=== PATIENT | female | born 1985 | race Caucasian/White ===

== ENCOUNTER → 2021-05-12 10:32 | Outpatient (BNVA) | payer OTHER, SELFPAY | PROVIDERS: PCP Nurse Practitioner Family; Visit Provider Surgery Vascular Surgery ==

== ENCOUNTER 2021-05-26 13:07 | Outpatient (REF) | payer OTHER, SELFPAY ==
--- NOTE | ~2021-05-26 | US_ITS ---
EXAMINATION: US LOWER EXTREMITY VENOUS ULTRASOUND (REFLUX EXAM), BILATERAL CLINICAL INDICATION: Bilateral lower extremity varicose veins. COMPARISON: None. TECHNIQUE: Color-flow triplex imaging and compression Doppler was performed to evaluate both the deep and the superficial systems bilaterally. To evaluate the superficial system, the examination was performed in the upright position. Color-flow Doppler ultrasound and compression ultrasound were utilized. In addition, maneuvers were utilized to demonstrate reflux. FINDINGS: 1. DEEP VENOUS ULTRASOUND OF THE RIGHT LOWER EXTREMITY: Common Femoral Vein: Compressible, normal respiratory variation and augmented flow. Femoral Vein: Compressible, normal color-flow and augmentation. Popliteal Vein: Compressible, normal augmentation. Deep Reflux: There is no evidence of reflux in the deep system in either the common femoral vein or the popliteal vein. There is no evidence of a Santos's cyst. 2. SUPERFICIAL ULTRASOUND WITH DOPPLER OF RIGHT LOWER EXTREMITY: GREAT SAPHENOUS VEIN: Saphenofemoral junction: 0.7 cm; Reflux: No evidence of reflux. Max diameter: 0.7 Min diameter: 0.2 Reflux: There is segmental reflux above the knee to below the knee and at the ankle. Reflux ranges from 1.5 seconds to greater than 3.4 seconds. DUPLICATED MEDIAL GREAT SAPHENOUS VEIN: Max Diameter: None imaged. Reflux: NA. DUPLICATED LATERAL GREAT SAPHENOUS VEIN: Diameter: None imaged. Reflux: NA. SMALL SAPHENOUS VEIN: Saphenopopliteal junction: 0.3 cm; Reflux: No evidence of reflux. Min diameter: 0.2 Reflux: There is 1.9 seconds of reflux at the distal calf. VEIN OF GIACOMINI: None imaged. PERFORATORS: Location: Mid thigh, proximal calf measuring 3 and 4 mm respectively. Reflux: 0.7 seconds at the proximal calf. VARICOSITIES: Location: Proximal thigh, distal thigh, mid calf and distal calf. Varicosities measure 3 mm. Reflux: Reflux is seen within the distal calf up to 3.2 seconds. 3. DEEP VENOUS ULTRASOUND OF THE LEFT LOWER EXTREMITY: Common Femoral Vein: Compressible, normal respiratory variation and augmented flow. Femoral Vein: Compressible, normal color-flow and augmentation. Popliteal Vein: Compressible, normal augmentation. Deep Reflux: There is no evidence of reflux in the deep system in either the common femoral vein or the popliteal vein. There is no evidence of a Santos's cyst. 4. SUPERFICIAL ULTRASOUND WITH DOPPLER OF LEFT LOWER EXTREMITY: GREAT SAPHENOUS VEIN: Saphenopopliteal junction: 0.7 cm; Reflux: No evidence of reflux. Max diameter: 0.7 Min diameter: 0.3 Reflux: There is segmental reflux at the mid thigh up to 1.5 seconds. DUPLICATED MEDIAL GREAT SAPHENOUS VEIN: Max Diameter: None imaged. Reflux: NA. DUPLICATED LATERAL GREAT SAPHENOUS VEIN: Diameter: None imaged. Reflux: NA. SMALL SAPHENOUS VEIN: Saphenofemoral junction: 0.5 cm; Reflux: Greater than 3.3 seconds. Min diameter: 0.3 Reflux: No evidence of reflux. VEIN OF GIACOMINI: None imaged. PERFORATORS: Location: Mid thigh, proximal calf measuring 4 and 2 mm respectively. Reflux: None. VARICOSITIES: Location: Mid calf, distal calf, proximal thigh and mid thigh. Varicosities measure 3 mm each. Reflux: None. ADDITIONAL: There are mildly enlarged bilateral inguinal lymph nodes. In the subcutaneous tissues of the left calf underlying an area of ecchymosis is a 1.5 x 0.4 x 1.8 cm fluid collection, possibly a resolving hematoma. This has no internal vascularity. US/US venous duplex LE BI IMPRESSION: 1. Segmental right great saphenous venous insufficiency at the knee and at the ankle. 2. Segmental left great saphenous venous insufficiency at the mid thigh. 3. Right small saphenous venous insufficiency at the distal calf. 4. Left small saphenous venous insufficiency at the saphenopopliteal junction. 5. Bilateral varicosities. 6. No evidence of DVT or deep venous insufficiency. 7. Mildly enlarged bilateral inguinal lymph nodes. 8. A 1.5 cm fluid collection along the left calf underlying an area of ecchymosis may reflect a resolving hematoma. Recommend correlation with clinical history.
== END 2021-05-26 13:08 | disposition home or self-care (01) ==
LOC: HO.US 13:07
PROVIDERS: PCP Physician Assistant; Visit Provider Surgery Vascular Surgery
DX: I83.12 Varicose veins of left lower extremity with inflammation (principal)
CPT/HCPCS: 93970

== ENCOUNTER → 2021-06-04 15:36 | Outpatient (BNVA) | payer OTHER, SELFPAY | PROVIDERS: PCP Physician Assistant; Visit Provider Surgery Vascular Surgery ==

== ENCOUNTER 2021-06-08 06:09 | Day surgery (SDC) | payer OTHER, SELFPAY ==
--- NOTE | 2021-06-05 13:17 | P.CONAN_ITS ---
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 Last cardiac visit 11/2020, SOB with normal ECHO. [facility] Active Problems Active Problems: All Active Problems (Updated 06/04/21 @ 15:51 by Francisco Song MD) Mass of left lower leg (Acute) Varicose veins of left lower extremity with inflammation (Acute) Past Medical History Medical History (Updated 06/05/21 @ 13:48 by Soo Ramirez NP) Asthma GERD (gastroesophageal reflux disease) HLD (hyperlipidemia) HTN (hypertension) Migraine Myocardial infarct (~2017) Peripartum cardiomyopathy (~2017) Surgical History Surgical History (Updated 06/05/21 @ 13:48 by Soo Ramirez NP) H/O esophagogastroduodenoscopy H/O heart artery stent (~2017) H/O shoulder surgery History of ankle surgery S/P meniscectomy Social History Social History Patient Tobacco Use Status: Never used Tobacco Use of substances other than those prescribed or required for medical reasons: No Are you DNR?: No Advance Directives: No Advance Directives Information Provided: Yes Recently lost weight without trying: No Meds Allergies Allergy/AdvReac Type Severity Reaction Status Date / Time erythromycin base Allergy Unknown VOMITING Verified 06/08/21 06:50 [ERYTHROMYCIN BASE] meperidine [From DEMEROL] Allergy Unknown Swelling Verified 06/08/21 06:50 penicillin G [PENICILLIN G] Allergy Unknown Anaphylaxis Verified 06/08/21 06:50 Home Medications Medication Instructions Recorded Confirmed Last Taken Type aspirin 81 mg tablet,delayed 81 mg PO DAILY 05/12/21 Unknown History release atorvastatin 20 mg tablet 20 mg PO DAILY 05/12/21 Unknown History buspirone 10 mg tablet 10 mg PO BID 05/12/21 Unknown History cetirizine 10 mg tablet 10 mg PO DAILY 05/12/21 Unknown History clopidogrel 75 mg tablet 75 mg PO DAILY 05/12/21 Unknown History cyclobenzaprine 5 mg tablet 5 mg PO TID PRN 05/12/21 Unknown History eszopiclone 2 mg tablet 2 mg PO BEDTIME PRN 05/12/21 Unknown History fluticasone propionate 50 1 spray INTRANASAL DAILY 05/12/21 Unknown History mcg/actuation nasal spray,suspension lorazepam 1 mg tablet mg PO 05/12/21 Unknown History metoprolol succinate 50 mg 50 mg PO DAILY 05/12/21 Unknown History tablet,extended release 24 hr nitroglycerin 0.4 mg sublingual 0 mg SUBLINGUAL 05/12/21 Unknown History tablet omeprazole 20 mg capsule,delayed 20 mg PO BID 05/12/21 Unknown History release sertraline 100 mg tablet 100 mg PO DAILY 05/12/21 Unknown History sertraline 50 mg tablet 50 mg PO DAILY 05/12/21 Unknown History tramadol 50 mg tablet 50 mg PO DAILY PRN 05/12/21 Unknown History Exam Exam Date and Time: June 05, 2021 1317 Narrative Narrative: ECHO 12/2020 1. Sinus rhythm 2. LV size normal 3. LV wall thickness is normal 4. Overall OV sys function is normal with EF 60-65% 5. Diastolic filling pattern is normal 6. No evidence of wall motion 7. Aortic valve is trileaflet and appears structurally normal. No aortic stenosis or regurg. 8. There is mild MR. Documented by User: So Lujan MD 06/08/21 07:26 [facility] Past Medical History Medical History (Updated 06/05/21 @ 13:48 by Soo Ramirez NP) Asthma GERD (gastroesophageal reflux disease) HLD (hyperlipidemia) HTN (hypertension) Migraine Myocardial infarct (~2017) Peripartum cardiomyopathy (~2018) Functional capacity: independent ambulation Patient : No Family History Family history of problems with anesthesia: No Surgical History Surgical History (Updated 06/05/21 @ 13:48 by Soo Ramirez NP) H/O esophagogastroduodenoscopy H/O heart artery stent (~2017) H/O shoulder surgery History of ankle surgery S/P meniscectomy History of Problems with Anesthesia: No Social History Social History Patient Tobacco Use Status: Never used Tobacco Use of substances other than those prescribed or required for medical reasons: No Are you DNR?: No Advance Directives: No Advance Directives Information Provided: Yes Recently lost weight without trying: No Meds Allergies Allergy/AdvReac Type Severity Reaction Status Date / Time erythromycin base Allergy Unknown VOMITING Verified 06/08/21 06:50 [ERYTHROMYCIN BASE] meperidine [From DEMEROL] Allergy Unknown Swelling Verified 06/08/21 06:50 penicillin G [PENICILLIN G] Allergy Unknown Anaphylaxis Verified 06/08/21 06:50 Home Medications Medication Instructions Recorded Confirmed Last Taken Type aspirin 81 mg tablet,delayed 81 mg PO DAILY 05/12/21 Unknown History release atorvastatin 20 mg tablet 20 mg PO DAILY 05/12/21 Unknown History buspirone 10 mg tablet 10 mg PO BID 05/12/21 Unknown History cetirizine 10 mg tablet 10 mg PO DAILY 05/12/21 Unknown History clopidogrel 75 mg tablet 75 mg PO DAILY 05/12/21 Unknown History cyclobenzaprine 5 mg tablet 5 mg PO TID PRN 05/12/21 Unknown History eszopiclone 2 mg tablet 2 mg PO BEDTIME PRN 05/12/21 Unknown History fluticasone propionate 50 1 spray INTRANASAL DAILY 05/12/21 Unknown History mcg/actuation nasal spray,suspension lorazepam 1 mg tablet mg PO 05/12/21 Unknown History metoprolol succinate 50 mg 50 mg PO DAILY 05/12/21 Unknown History tablet,extended release 24 hr nitroglycerin 0.4 mg sublingual 0 mg SUBLINGUAL 05/12/21 Unknown History tablet omeprazole 20 mg capsule,delayed 20 mg PO BID 05/12/21 Unknown History release sertraline 100 mg tablet 100 mg PO DAILY 05/12/21 Unknown History sertraline 50 mg tablet 50 mg PO DAILY 05/12/21 Unknown History tramadol 50 mg tablet 50 mg PO DAILY PRN 05/12/21 Unknown History Exam Airway Mallampati Class: II TM Dist: >3cm Neck ROM: Full Heart: RRR Lungs: CTA Assessment and Plan Final Anesthetic Review Family History of Problems with Anesthesia: No History of Problems with Anesthesia: No ASA Class: II Final Preanesthetic Review: No Changes in Pt Med Stat Patient Risk: Intermediate Procedure Risk: Low Anesthetic Plan Anesthetic Plan: GA Disposition: Standard PACU
[2021-06-08] VITALS (9 sets, daily range): BP systolic 91–117; BP diastolic 49–71; PULSE 73–91; RESP 16–18; TEMP 36.2–36.6; O2SAT 93–98; BMI 41.9
[2021-06-08 06:37] LABS: UPreg QC Valid YES; Urine Pregnancy NEGATIVE (NEGATIVE)
[2021-06-08] MEDS: Lactated Ringers 1,000 ML 100 ML IVCONT (06:51)
--- NOTE | 2021-06-08 09:04 | HO.POSTANES ---
Post Anesthesia Evaluation Post Anesthesia Evaluation Vital Signs: Vital Signs Temp Pulse Resp BP Pulse Ox 06/08/21 09:00 81 16 100/53 L 93 06/08/21 08:55 83 16 104/53 L 93 06/08/21 08:50 78 16 104/52 L 94 06/08/21 08:45 97.9 F 91 16 96/49 L 95 06/08/21 06:46 97.2 F 73 16 117/56 L 96 Anesthesia: General Mental Status: Awake Pain Control: Satisfactory Nausea/Vomiting: None Hydration: Adequate Anesthesia-Related Issues: No Anes. Related Issues
--- NOTE | 2021-06-08 09:45 | P.OP_ITS ---
Operative Note Operative Note Date of Service: 06/08/21 Narrative: Operative note by [facility] Preoperative diagnosis:1. Left calf mass 2. Venous cluster Postoperative diagnosis: Same Procedure: 1. Excision of left calf mass 2. Ligation of venous cluster Surgeon:Francisco Song M.D. Product Design Specialist: None Anesthesia: General Specimens:1 Drains: None Estimated blood loss: Minimal Indications: 36-year-old female with a prior history of trauma nearly a year ago has a indurated hardened area underneath the skin which is quite painful for her. She has had outpatient ultrasound. She now presents for excision of this mass. In addition ligation of venous cluster The patient has signed the informed consent after reviewing risks, complications, benefits, and alternatives previously discussed with the patient. The patient was given the opportunity to ask any additional questions or voice any concerns. All questions were answered to the patient's satisfaction. Procedure in detail: Patient was brought to the operating room prior to which a time-out was called for patient identification site verification. Left leg was prepped and draped in standard surgical fashion approximately a 4.5 cm incision was carried out over this mass. This was then excised its entirety. Upon entry we opened this capsule where purulent material was expressed. Cultures were sent. We then excise this capsule which was again about 4.5 cm in diameter in its entirety. The concern was there was a hard indurated area and concern of a foreign body. This was then removed and passed off the table as specimen. Once this was all accomplished the wound was irrigated thoroughly. There was a feeding venous cluster. The base was identified. Puncture was made over it and it was ligated. The incisions were then closed deep layer with 3-0 Polysorb in an interrupted manner and finally skin with a 4-0 Monocryl in a running subcuticular manner. Steri-Strips and a sterile dressing were applied. At the end the case sponge instrument counts were correct. Patient tolerated the procedure well. Returned to recovery with stable vitals. This note is constructed using voice recognition software. While every effort has been made to ensure accuracy, boilermaker's assistant errors may have been included. Thank you for allowing me to participate in the care of your patient. Yours sincerely, Francisco Song MD, FACS, R.P.V.I.
--- NOTE | 2021-06-08 09:48 | MHC.SHP ---
Pre-Procedural Eval Section A Date of Service: 06/08/21 The patient is an INPATIENT: No The History & Physical has been completed within 30 days and I have reviewed it.: Yes Section B Chief Complaint: Localized Swelling, Mass and lump Allergies: Allergies Allergy/AdvReac Type Severity Reaction Status Date / Time erythromycin base Allergy Unknown VOMITING Verified 06/08/21 06:50 [ERYTHROMYCIN BASE] meperidine [From DEMEROL] Allergy Unknown Swelling Verified 06/08/21 06:50 penicillin G [PENICILLIN G] Allergy Unknown Anaphylaxis Verified 06/08/21 06:50 Plan I have reviewed the history and physical and performed a pertinent physical examination on my patient. No changes have occurred unless specified.
== END 2021-06-08 10:27 | disposition home or self-care (01) ==
PROVIDERS: Nurse Practitioner; PCP Physician Assistant; Visit Provider Surgery Vascular Surgery
PROC: (CPT 37785; principal; 2021-06-08 07:30)
DX: D21.22 Benign neoplasm of connective and other soft tissue of left lower limb, including hip (principal); M79.662 Pain in left lower leg; L98.8 Other specified disorders of the skin and subcutaneous tissue; I83.12 Varicose veins of left lower extremity with inflammation; I25.2 Old myocardial infarction; Z87.59 Personal history of other complications of pregnancy, childbirth and the puerperium; I34.0 Nonrheumatic mitral (valve) insufficiency; I10 Essential (primary) hypertension; Z95.5 Presence of coronary angioplasty implant and graft; K21.9 Gastro-esophageal reflux disease without esophagitis; E78.5 Hyperlipidemia, unspecified; J45.909 Unspecified asthma, uncomplicated; Z79.82 Long term (current) use of aspirin; Z79.02 Long term (current) use of antithrombotics/antiplatelets; Z79.899 Other long term (current) drug therapy; Z79.51 Long term (current) use of inhaled steroids; Z88.0 Allergy status to penicillin; Z88.8 Allergy status to other drugs, medicaments and biological substances
CPT/HCPCS: 37785; 11406; 12032; 81025; 87071; 87205; 88305; J2250; J2405; J3010; J3370

== ENCOUNTER → 2021-06-18 14:40 | Outpatient (BNVA) | payer OTHER, SELFPAY | PROVIDERS: PCP Physician Assistant; Visit Provider Surgery Vascular Surgery ==